=== PATIENT | female | born 1960 | race Caucasian/White ===

== ENCOUNTER 2018-06-20 12:07 | Emergency (ER) | payer BC, OTHER ==
[2018-06-20 12:46] VITALS: BP 145/84; PULSE 68; RESP 18; TEMP 98.1; O2SAT 100
--- NOTE | 2018-06-20 14:22 | C.PDOC ---
History Of Present Illness 58 year old female presents to the ED complaining of right hand and left forearm pain sustained from a fall 6 days ago. Denies any LOC, headache, weakness, numbness, or any other symptoms. Time Seen by Provider: 06/20/18 13:05 Chief Complaint (Nursing): Finger,Hand,&Wrist History Per: Patient History/Exam Limitations: no limitations Onset/Duration Of Symptoms: Days (5) Current Symptoms Are (Timing): Still Present Exacerbating Factor(s): Movement Past Medical History Reviewed: Historical Data, Nursing Documentation, Vital Signs Vital Signs: Last Vital Signs Temp 98.1 F 06/20/18 12:44 Pulse 68 06/20/18 12:44 Resp 18 06/20/18 12:44 BP 145/84 06/20/18 12:44 Pulse Ox 100 06/20/18 12:44 - Medical History PMH: No Chronic Diseases Surgical History: No Surg Hx Family History: States: No Known Family Hx - Social History Hx Alcohol Use: No Hx Substance Use: No - Immunization History Hx Tetanus Toxoid Vaccination: No Hx Influenza Vaccination: Yes (2018) Hx Pneumococcal Vaccination: No Review Of Systems Except As Marked, All Systems Reviewed And Found Negative. Constitutional: Negative for: Fever, Chills Musculoskeletal: Positive for: Arm Pain (left forearm ), Hand Pain (right ) Neurological: Negative for: Weakness, Numbness Physical Exam - Physical Exam Appears: Non-toxic, No Acute Distress Skin: Warm, Dry Head: Normacephalic Eye(s): bilateral: Normal Inspection Oral Mucosa: Moist Neck: Supple Chest: Symmetrical Extremity: Normal ROM, Tenderness (mild tenderness to left forearm and right hand ), Capillary Refill (less than 2 sec to left forearm and right hand ), No Deformity, No Swelling Extremity: Bilateral: Normal Color And Temperature, Normal ROM Pulses: Left Radial: Normal, Right Radial: Normal Neurological/Psych: Oriented x3, Normal Speech Gait: Steady ED Course And Treatment O2 Sat by Pulse Oximetry: 100 (RA) Pulse Ox Interpretation: Normal - Other Rad XR left forearm X-Ray: Viewed By Me, Read By Radiologist Interpretation: Accession No. : [id number]. Patient Name / ID : NANCY GUADARRAMA / [id number]. Exam Date : 06/20/2018 13:52:06 ( Approved ). Study Comment : Sex / Age : F / 58Y. Creator : Misael Gomez MD. Dictator : Misael Gomez MD. Gallery [employer] Museum Guide : Sql Database Developer : Misael Gomez MD. Approver2 : Report Date : 06/20/2018 14:56:49. My Comment : . Date of service: . 06/20/2018. PROCEDURE: Radiographs of the Left Forearm. HISTORY: fall. COMPARISON: None available. TECHNIQUE: Frontal and lateral views obtained. FINDINGS: BONES: No fracture or destructive lesion. JOINT SPACES: Unremarkable. OTHER FINDINGS: None. IMPRESSION: Unremarkable radiographs of the left forearm. XR right hand X-Ray: Viewed By Me, Read By Radiologist Interpretation: Accession No. : [id number]. Patient Name / ID : NANCY GUADARRAMA / [id number]. Exam Date : 06/20/2018 13:48:09 ( Approved ). Study Comment : Sex / Age : F / 58Y. Creator : Misael Gomez MD. Dictator : Misael Gomez MD. Gallery Or Museum Guide : Sql Database Developer : Misael Gomez MD. Approver2 : Report Date : 06/20/2018 14:57:23. My Comment : . PROCEDURE: Right Hand Radiographs. HISTORY: fall. COMPARISON: None. FINDINGS: BONES: Normal. No fracture. JOINTS: Normal. No osteoarthritic changes. SOFT TISSUES: Normal. OTHER FINDINGS: None. IMPRESSION: Normal right hand radiographs Disposition - Disposition Referrals: Chad Mandel MD [Medical Doctor] - Kennedy Garcia MD [Staff Provider] - Disposition: HOME/ ROUTINE Disposition Time: 14:19 Condition: STABLE Additional Instructions: Follow up with your PMD and ORThopedist within 2-3 days. Return to ED if feel worse. Prescriptions: Ibuprofen [Motrin Tab] 600 mg PO Q8 #30 tab Instructions: Contusion (DC) Forms: [employer] (Irish) - Clinical Impression Clinical Impression: Contusion of upper extremity - PA / TUNNELLER / Resident Statement MD/DO has reviewed & agrees with the documentation as recorded. - Scribe Statement The provider has reviewed the documentation as recorded by the Scribe Stella Chavez All medical record entries made by the Anotnia were at my direction and personally dictated by me. I have reviewed the chart and agree that the record accurately reflects my personal performance of the history, physical exam, medical decision making, and the department course for this patient. I have also personally directed, reviewed, and agree with the discharge instructions and disposition.
--- NOTE | 2018-06-20 15:00 | RAD ---
Date of service: 06/20/2018 PROCEDURE: Radiographs of the Left Forearm HISTORY: fall COMPARISON: None available. TECHNIQUE: Frontal and lateral views obtained. FINDINGS: BONES: No fracture or destructive lesion. JOINT SPACES: Unremarkable. OTHER FINDINGS: None. IMPRESSION: Unremarkable radiographs of the left forearm.
--- NOTE | 2018-06-20 15:01 | RAD ---
PROCEDURE: Right Hand Radiographs. HISTORY: fall COMPARISON: None. FINDINGS: BONES: Normal. No fracture. JOINTS: Normal. No osteoarthritic changes. SOFT TISSUES: Normal. OTHER FINDINGS: None. IMPRESSION: Normal right hand radiographs.
== END 2018-06-20 14:40 | disposition home or self-care (01) ==
LOC: C.ER 12:07
DX: S40.022A Contusion of left upper arm, initial encounter (principal); W19.XXXA Unspecified fall, initial encounter